=== PATIENT | female | born 1975 | race Caucasian/White ===

== ENCOUNTER 2018-07-22 13:46 | Inpatient (IN) | payer OTHER ==
--- NOTE | 2018-07-22 14:29 | PDOC ---
Attending Attestation - HPI HPI: 07/22/18 16:39 The patient is a 42 year old female with a significant past medical history of chronic back pain, seizures, multiple strokes, migraines who presents to the ER s/p fall two days ago. Patient states she slipped in her bathroom and sustained a head injury on the rim of the bathtub. Patient denies loss of consciousness. Patient is complaining of a headache localized on the right side and blurry vision on the right side. Patient reports seeing her neurologist, Dr. Rosas, who suggested she come to the ER for further evaluation. The patient denies chest pain, shortness of breath, and dizziness. Denies fever, chills, nausea, vomit, diarrhea, and constipation. Denies dysuria, frequency, urgency, and hematuria. Allergies: NKA Past surgical history: None reported. Social history: No reported alcohol, drug or cigarette use. Neurologist: Dr. Rosas <Oralia Johnson - Last Filed: 07/22/18 16:39> - Resident Resident Name: Kelechi Lane - ED Attending Attestation I have performed the following: I have examined & evaluated the patient, The case was reviewed & discussed with the resident, I agree w/resident's findings & plan, Exceptions are as noted - Physicial Exam PE: GENERAL: Awake, alert, and fully oriented, in no acute distress HEAD: No signs of trauma EYES: PERRLA, EOMI, sclera anicteric, conjunctiva clear ENT: Auricles normal inspection, hearing grossly normal, nares patent, oropharynx clear without exudates. Moist mucosa NECK: Normal ROM, supple, no lymphadenopathy, JVD, or masses LUNGS: Breath sounds equal, clear to auscultation bilaterally. No wheezes, and no crackles HEART: Regular rate and rhythm, normal S1 and S2, no murmurs, rubs or gallops ABDOMEN: Soft, nontender, normoactive bowel sounds. No guarding, no rebound. No masses EXTREMITIES: Normal range of motion, no edema. No clubbing or cyanosis. No cords, erythema, or tenderness NEUROLOGICAL: Cranial nerves II through XII grossly intact. Normal speech. Sensation intact. Strength 4/5 RLE. Remainder 5/5. SKIN: Warm, Dry, normal turgor, no rashes or lesions noted. - Medical Decision Making Pt with history multiple strokes presenting s/p fall with R sided weakness ( apparently has no residual weakness, so this appears to be new). CTH obtained, no acute findings. For admission in light of her prior complicated history. <Sugar Butler - Last Filed: 07/25/18 10:26>
[2018-07-22] MEDS ORDERED: PROMETHAZINE HCL 25 MG TABLET PO ONE (15:46)
[2018-07-22] MEDS ORDERED: ONDANSETRON 4 MG/2 ML VIAL IVPUSH ONE (15:48)
[2018-07-22] MEDS ORDERED: ACETAMINOPHEN/CAFFEINE/BUTALBITAL 1 TAB PO ONE (15:50)
[2018-07-22] MEDS ORDERED: ACETAMINOPHEN/CAFFEINE/BUTALBITAL 1 TAB ONE (15:56)
[2018-07-22] MEDS ORDERED: ONDANSETRON 4 MG/2 ML VIAL ONE (15:56)
[2018-07-22 16:10] LABS: BASO % 0.6 % (0-2.0); EOS % 2.6 % (0-4.5); HEMATOCRIT 34.5 % (32.4-45.2); LYMPH % 36.7 % (8-40); MCH 31.7 pg (25.7-33.7); MCHC 34.8 g/dl (32.0-36.0); MEAN CELL VOLUME 91.1 fl (80-96); MEAN PLT VOLUME 8.1 fl (7.5-11.1); MONO % 8.8 % (3.8-10.2); NEUT % 51.3 % (42.8-82.8); PLATELET COUNT 179 K/MM3 (134-434); RBC 3.79 M/mm3 (3.60-5.2); RDW 12.8 % (11.6-15.6); WHITE BLOOD COUNT 5.2 K/mm3 (4.0-10.0)
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
[2018-07-22] MEDS: clonazePAM 0.5 MG TABLET PO ONE ×2 (16:21→16:32)
[2018-07-22 16:36] LABS: ALBUMIN 3.4 g/dl (3.4-5.0); ANION GAP 9 MMOL/L (8-16); BILIRUBIN,TOTAL 0.5 mg/dL (0.2-1.0); BLOOD UREA NITROGEN 21 mg/dL (7-18); CALCIUM 8.6 mg/dL (8.5-10.1); CHLORIDE 108 mmol/L (98-107); CO2 25 mmol/L (21-32); CREATININE 0.9 mg/dL (0.55-1.02); GLUCOSE,RANDOM 73 mg/dL (74-106); POTASSIUM 3.8 mmol/L (3.5-5.1); SGOT/AST 24 U/L (15-37); SGPT/ALT 45 U/L (12-78); SODIUM 142 mmol/L (136-145); TOT PROT 6.9 g/dl (6.4-8.2)
[2018-07-22] MEDS ORDERED: SODIUM CHLORIDE 1,000 ML IV STA (16:36)
[2018-07-22 16:37] LABS: ALK PHOS 80 U/L (45-117)
--- NOTE | 2018-07-22 17:15 | PN ---
Physical Exam: SUBJECTIVE: Patient seen and examined OBJECTIVE: Vital Signs Period Temp Pulse Resp BP Sys/Lyman Pulse Ox Last 24 Hr 98 F 68-82 16-18 89-95/54-65 98-100 GENERAL: The patient is awake, alert, and fully oriented, in no acute distress. HEAD: Normal with no signs of trauma. EYES: PERRL, extraocular movements intact, sclera anicteric, conjunctiva clear. No ptosis. ENT: Ears normal, nares patent, oropharynx clear without exudates, moist mucous membranes. NECK: Trachea midline, full range of motion, supple. LUNGS: Breath sounds equal, clear to auscultation bilaterally, no wheezes, no crackles, no accessory muscle use. HEART: Regular rate and rhythm, S1, S2 without murmur, rub or gallop. ABDOMEN: Soft, nontender, nondistended, normoactive bowel sounds, no guarding, no rebound, no hepatosplenomegaly, no masses. EXTREMITIES: 2+ pulses, warm, well-perfused, no edema. NEUROLOGICAL: Cranial nerves II through XII grossly intact. Normal speech, gait not observed. PSYCH: Normal mood, normal affect. SKIN: Warm, dry, normal turgor, no rashes or lesions noted Laboratory Results - last 24 hr 07/22/18 07/22/18 15:49 15:49 WBC 5.2 RBC 3.79 Hgb 12.0 Hct 34.5 MCV 91.1 MCH 31.7 MCHC 34.8 RDW 12.8 Plt Count 179 MPV 8.1 Absolute Neuts (auto) 2.7 Neutrophils % 51.3 Lymphocytes % 36.7 Monocytes % 8.8 Eosinophils % 2.6 Basophils % 0.6 Nucleated RBC % 0 Sodium 142 Potassium 3.8 Chloride 108 H Carbon Dioxide 25 Anion Gap 9 BUN 21 H Creatinine 0.9 Creat Clearance w eGFR > 60 Random Glucose 73 L Calcium 8.6 Total Bilirubin 0.5 AST 24 ALT 45 Alkaline Phosphatase 80 Total Protein 6.9 Albumin 3.4 Active Medications Generic Name Dose Route Start Last Admin Trade Name Freq PRN Reason Stop Dose Admin Sodium Chloride 1,000 mls @ 1,000 mls/hr 07/22/18 16:36 07/22/18 16:40 Normal Saline - IV 07/22/18 17:35 1,000 mls/hr ASDIR STA Administration ASSESSMENT/PLAN:
[2018-07-22] MEDS ORDERED: LORazepam 2 MG/ML SDV VIAL ONE (19:54)
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
[2018-07-22] MEDS ORDERED: ATORVASTATIN CA 40 MG TABLET (FP) PO SCH (22:00)
[2018-07-22] MEDS ORDERED: clonazePAM 0.5 MG TABLET PO SCH (22:00)
[2018-07-22] MEDS ORDERED: TOPIRAMATE 100 MG TABLET PO SCH (22:00)
[2018-07-22] MEDS ORDERED: PATIENT'S OWN MEDICATION (NON-FORMULARY) (Clonazepam [Klonopin] 1 MG) PO SCH (22:00)
[2018-07-22] MEDS ORDERED: ATORVASTATIN CA 40 MG TABLET (FP) ONE (22:26)
[2018-07-22] MEDS ORDERED: clonazePAM 0.5 MG TABLET ONE (22:26)
[2018-07-22] MEDS ORDERED: TOPIRAMATE 25 MG TABLET (FP) ONE (22:27)
[2018-07-22] MEDS ORDERED: TOPIRAMATE 25 MG TABLET (FP) PO SCH (22:29)
[2018-07-22] MEDS: TOPIRAMATE 25 MG TABLET (FP) PO SCH (22:52)
[2018-07-23 00:41] LABS: URINE APPEARANCE CLOUDY; URINE BILIRUBIN NEGATIVE (<2.0 mg/dL); URINE COLOR LTYELLOW; URINE GLUCOSE (UA) NEGATIVE (NEGATIVE); URINE KETONE NEGATIVE (NEGATIVE); URINE LEUK ESTERASE NEGATIVE (NEGATIVE); URINE NITRITE NEGATIVE (NEGATIVE); URINE PROTEIN NEGATIVE (NEGATIVE); URINE UROBILINOGEN NEGATIVE mg/dL (0.2-1.0)
[2018-07-23 06:17] LABS: BASO % 0.4 % (0-2.0); EOS % 3.2 % (0-4.5); HEMATOCRIT 35.4 % (32.4-45.2); HEMOGLOBIN 12.1 GM/dL (10.7-15.3); LYMPH % 46.7 % (8-40); MCH 31.3 pg (25.7-33.7); MCHC 34.2 g/dl (32.0-36.0); MEAN CELL VOLUME 91.6 fl (80-96); MONO % 8.6 % (3.8-10.2); NEUT % 41.1 % (42.8-82.8); PLATELET COUNT 153 K/MM3 (134-434); RBC 3.86 M/mm3 (3.60-5.2); WHITE BLOOD COUNT 4.8 K/mm3 (4.0-10.0)
[2018-07-23 06:38] LABS: ALBUMIN 3.1 g/dl (3.4-5.0); ANION GAP 6 MMOL/L (8-16); BLOOD UREA NITROGEN 19 mg/dL (7-18); CHLORIDE 110 mmol/L (98-107); CO2 25 mmol/L (21-32); GLUCOSE,RANDOM 90 mg/dL (74-106); MAGNESIUM 1.9 mg/dL (1.8-2.4); POTASSIUM 3.9 mmol/L (3.5-5.1); SGOT/AST 28 U/L (15-37); SGPT/ALT 44 U/L (12-78); SODIUM 141 mmol/L (136-145)
[2018-07-23 06:42] LABS: ALK PHOS 75 U/L (45-117); BILIRUBIN,TOTAL 0.4 mg/dL (0.2-1.0); CHOLESTEROL 100 mg/dL (50-200); HDL CHOLESTEROL 36 mg/dL (40-60); TOT PROT 6.6 g/dl (6.4-8.2); TRIGLYCERIDES 101 mg/dL (35-160)
[2018-07-23 06:59] VITALS: BMI 27.6
[2018-07-23] MEDS ORDERED: LEVOTHYROXINE NA 50 MCG TABLET (FP) PO SCH ×2 (07:00→10:00)
[2018-07-23] MEDS ORDERED: PT OWN MED DRAWER 7, Y5N ONE ×2 (09:18→12:28)
[2018-07-23] MEDS ORDERED: clonazePAM 0.5 MG TABLET PO PRN (09:47)
[2018-07-23] MEDS ORDERED: BUPRENORPHINE/NALOXONE 8 MG/2 MG FILM PACKET SL SCH (10:00)
[2018-07-23] MEDS ORDERED: ASPIRIN 81 MG CHEWABLE TABLETS PO SCH (10:00)
[2018-07-23] MEDS ORDERED: PATIENT'S OWN MEDICATION (NON-FORMULARY) (Dextroamphetamine/Amphetamine [Adderall 10 Mg Ta PO SCH (10:00)
[2018-07-23] MEDS ORDERED: TOPIRAMATE 100 MG TABLET PO SCH (10:46)
[2018-07-23] MEDS ORDERED: ACETAMINOPHEN/CAFFEINE/BUTALBITAL 1 TAB PO ONE (11:47)
--- NOTE | 2018-07-23 11:47 | CON.NEURO ---
Consult - Past Medical History ...: No - Alcohol/Substance Use Hx Alcohol Use: No - Smoking History Smoking history: Never smoked Have you smoked in the past 12 months: No Home Medications - Allergies Allergies/Adverse Reactions: Allergies Allergy/AdvReac Type Severity Reaction Status Date / Time sulfamethoxazole Allergy Verified 07/22/18 13:50 [From ] trimethoprim [From ] Allergy Verified 07/22/18 13:50 avalox Allergy Uncoded 07/22/18 13:50 avlox Allergy Uncoded 07/22/18 13:50 - Home Medications Home Medications: Ambulatory Orders Dextroamphetamine/Amphetamine [Adderall 10 mg Tablet] 30 mg PO BID #10 tablet MDD 2 tabs 05/31/18 Topiramate [Topamax] 100 mg PO BID 5 Days #10 tablet 05/31/18 Aspirin [ASA -] 81 mg PO DAILY 07/22/18 Atorvastatin Ca [Lipitor] 40 mg PO HS 07/22/18 Buprenorphine HCl/Naloxone HCl [Suboxone 8 mg-2 mg Sl Tablets] 1 each SL DAILY 07/22/18 Clonazepam [Klonopin] 1 mg PO BID 07/22/18 Levothyroxine [Synthroid -] 50 mcg PO DAILY 07/22/18 Physical Exam-Neuro Vital Signs: Vital Signs Temperature 98 F 07/23/18 06:52 Pulse Rate 58 L 07/23/18 06:52 Respiratory Rate 18 07/23/18 06:52 Blood Pressure 90/60 07/23/18 06:52 O2 Sat by Pulse Oximetry (%) 98 07/23/18 06:52 Labs: CBC, BMP 07/23/18 06:05 07/23/18 06:05 Assessment/Plan cc Fall and hitting her head HPI 42 year old female history of anxiety, back pain , strokes, mgiraine and hypothyroidism. She is known to me as I saw her in office couple of time. She has beenon clonazepam, adderall . She is seeing psychiatrist and pain management. She has history of stroke and ? multiple stroke in past and complain of mild right sided weakness as baseline. Patient has two cystic lesion on left occipital area and right frontal area. Patient is planning to move back to [place]. She saw me yesterday and I advise her to come to ed , as she was complaining of headache and sleepiness. PAST MEDICAL HISTORY: anxiety, chronic back pain, seizures, strokes, migraines Social History: Smoking: denies Alcohol: denies Drugs: on suboxone, klonopin Allergies sulfamethoxazole [From ] Allergy (Verified 07/22/18 13:50) trimethoprim [From Julra] Allergy (Verified 07/22/18 13:50) avalox Allergy (Uncoded 07/22/18 13:50) avlox Allergy (Uncoded 07/22/18 13:50) HOME MEDICATIONS: Home Medications Medication Instructions Recorded Dextroamphetamine/Amphetamine 30 mg PO BID #10 tablet MDD 2 tabs 05/31/18 [Adderall 10 mg Tablet] Topiramate [Topamax] 100 mg PO BID 5 Days #10 tablet 05/31/18 Aspirin [ASA -] 81 mg PO DAILY 07/22/18 Atorvastatin Ca [Lipitor] 40 mg PO HS 07/22/18 Buprenorphine HCl/Naloxone HCl 1 each SL DAILY 07/22/18 [Suboxone 8 mg-2 mg Sl Tablets] Clonazepam [Klonopin] 1 mg PO HS 07/22/18 Levothyroxine [Synthroid -] 50 mcg PO DAILY 07/22/18 NEUROLOGICAL EXAMINATION Alert oriented x 3 speech is normal, there is right hemianopsia, no face asymmetry very minimial right sided ( hand smutter and right leg weakness) grade 5-/5 reflex are symmetrical sensation is normal ct reviewed and mri of brain showed left occpital cyst and right frontal lobe encephalomalacia , Assessment- Recent fall could be Mechanical fall vs medication induced ( as she is on clonazepam, suboxone, and adderall), there is no acute findigns on mri or ct head, cystic lesion could be due to old traumatic injury vs ? old stroke Plan- would like to obtain old records to compare as outpatient - continue same medication aspirni and statin - she is schedule for botox injection on wednesday, and she would like to keep that appt - Neurologically she is stable and can be discharged, -Patient can be seen with PT before she discharged Thanking you so much Rony Rosas MD
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
[2018-07-23] MEDS: TOPIRAMATE 25 MG TABLET (FP) PO SCH (13:06)
[2018-07-23 14:14] VITALS: BP 89/53; PULSE 66; TEMP 97.9
--- NOTE | 2018-07-26 17:19 | EKG ---
Test Reason : Blood Pressure : / mmHG Vent. Rate : 060 BPM Atrial Rate : 060 BPM P-R Int : 128 ms QRS Dur : 074 ms QT Int : 424 ms P-R-T Axes : 036 029 014 degrees QTc Int : 424 ms NORMAL SINUS RHYTHM NONSPECIFIC T WAVE ABNORMALITY ABNORMAL ECG NO PREVIOUS ECGS AVAILABLE Confirmed by MD ARAMIS, RICCARDO ([id number]) on 07/26/2018 5:18:59 PM Referred By: Confirmed By:RICCARDO SELF MD
== END 2018-07-23 17:47 | disposition home or self-care (01) | DRG 914 ==
LOC: JER 13:46 → JERBED 16:30 → J4W 07-23 07:41
PROVIDERS: ADMIT Internal Medicine; ATTEND Internal Medicine
DX: S09.90XA Unspecified injury of head, initial encounter (principal); I69.351 Hemiplegia and hemiparesis following cerebral infarction affecting right dominant side; G93.89 Other specified disorders of brain; W19.XXXA Unspecified fall, initial encounter; Y93.89 Activity, other specified; Y92.89 Other specified places as the place of occurrence of the external cause; Y99.8 Other external cause status; E03.9 Hypothyroidism, unspecified
CPT/HCPCS: 36415; 70450-TC; 70551-TC; 80053; 80061; 81003; 83036; 83721; 83735; 84484; 85025; 93005; 93010; 93880-TC; 99285-25; J7030

== ENCOUNTER 2019-03-23 09:41 | Inpatient (IN) | payer BC ==
[2019-03-23 10:17] VITALS: BMI 26.2
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
[2019-03-23] MEDS ORDERED: IBUPROFEN 400 MG TABLET (FP) PO PRN (11:30)
[2019-03-23] MEDS ORDERED: BISMUTH SUBSALICYLATE 262 MG/15 ML BTL PO PRN (11:30)
[2019-03-23] MEDS ORDERED: ACETAMINOPHEN 325 MG TABLET (FP) PO PRN ×2 (11:30)
[2019-03-23] MEDS ORDERED: MAG HYDROX/AL HYDROX/SIMETH 30 ML UNIT-DOSE CUP PO PRN (11:30)
[2019-03-23] MEDS ORDERED: MAGNESIUM HYDROX 2400MG/30ML ORAL SUSPENSION 30 ML CUP PO PRN (11:30)
[2019-03-23] MEDS ORDERED: MENTHOL/PHENOL 1 EACH UD MM PRN (11:30)
[2019-03-23] MEDS ORDERED: MAGNESIUM CITRATE 300 ML BOTTLE PO PRN (11:30)
[2019-03-23] MEDS ORDERED: METHADONE HCL 10 MG TABLET (FOR DETOX USE ONLY) PO ONE (12:05)
[2019-03-23] MEDS: clonazePAM 0.5 MG TABLET PO PRN ×2 (12:19→17:50)
[2019-03-23] MEDS: METHOCARBAMOL 500 MG TABLET PO PRN (17:50)
[2019-03-23] MEDS: hydrOXYzine PAMOATE 25 MG CAPSULE (FP) PO PRN (17:51)
[2019-03-23] MEDS: TOPIRAMATE 100 MG TABLET PO SCH (22:31)
[2019-03-23] MEDS: THIAMINE HCL 100 MG TABLET (FP) PO SCH (22:31)
[2019-03-23] MEDS: ATORVASTATIN CA 40 MG TABLET (FP) PO SCH (22:31)
[2019-03-23] MEDS: MELATONIN 5 MG TABLETS PO PRN (22:32)
[2019-03-24] MEDS: ONDANSETRON *ODT* 4 MG TABLET SL PRN ×4 (02:56→21:43)
[2019-03-24] MEDS: hydrOXYzine PAMOATE 25 MG CAPSULE (FP) PO PRN ×4 (02:57→21:44)
[2019-03-24] MEDS: clonazePAM 0.5 MG TABLET PO PRN ×3 (05:32→21:43)
[2019-03-24] MEDS: TRIMETHOBENZAMIDE HCL 200MG/2ML INJ IM PRN ×3 (07:34→23:02)
[2019-03-24] MEDS ORDERED: METHADONE DETOX 10 MG/1 ML [20ML VIAL] IM ONE (09:19)
[2019-03-24] MEDS ORDERED: METHADONE HCL 10 MG TABLET (FOR DETOX USE ONLY) PO ONE (10:00)
[2019-03-24] MEDS ORDERED: METHADONE (DETOX) 20 MG, METHADONE (DETOX) 5 MG PO ONE (10:00)
[2019-03-24 10:08] LABS: HEMATOCRIT 47.4 % (32.4-45.2); HEMOGLOBIN 15.2 GM/dL (10.7-15.3); MCHC 32.1 g/dl (32.0-36.0); MEAN CELL VOLUME 90.5 fl (80-96); MEAN PLT VOLUME 8.8 fl (7.5-11.1); PLATELET COUNT 315 K/MM3 (134-434); RBC 5.24 M/mm3 (3.60-5.2); RDW 14.3 % (11.6-15.6); WHITE BLOOD COUNT 10.3 K/mm3 (4.0-10.0)
[2019-03-24 10:12] LABS: BILIRUBIN,TOTAL 1.2 mg/dL (0.2-1); CREATININE 0.9 mg/dL (0.55-1.3); POTASSIUM 3.7 mmol/L (3.5-5.1); TOT PROT 8.3 g/dl (6.4-8.2)
[2019-03-24] MEDS: cloNIDine HCL 0.1 MG TABLET PO PRN ×2 (10:46→19:15)
[2019-03-24] MEDS: ASPIRIN 81 MG CHEWABLE TABLETS PO SCH (10:46)
[2019-03-24] MEDS: TOPIRAMATE 100 MG TABLET PO SCH ×2 (10:46→21:43)
[2019-03-24] MEDS: PRENATAL VITAMINS W/ FOLIC ACID TABLET (FP) PO SCH (10:48)
[2019-03-24] MEDS: DICYCLOMINE HCL 10 MG CAPSULE PO PRN ×2 (12:21→19:15)
--- NOTE | 2019-03-24 17:01 | PN ---
BHS COWS - Scale Resting Pulse: 0= [place] 80 or Below Sweatin= Chills/Flushing Restless Observation: 1= Difficult to Sit Still Pupil Size: 0= Normal to Room Light Bone or Joint Aches: 1= Mild Discomfort Runny Nose/ Eye Tearin= Nasal Congestion GI Upset > 30mins: 5=Frequent Vomit/Diarrhea Tremor Observation of Outstretched Hands: 2= Slight Tremor Visible Yawning Observation: 1= 1-2x During Session Anxiety or Irritability: 4=Extreme Anxiety Goose Flesh Skin: 0=Smooth Skin COWS Score: 16 BHS Progress Note (SOAP) Subjective: Vomiting, Frequent, Stomach Cramping, Anxious, Tremors, Body Aches. Objective: PATIENT A & O X 3, OBSERVED AMBULATING ON UNIT UNASSISTED. 03/24/19 16:56 Vital Signs Temperature 97.1 F L 03/24/19 14:12 Pulse Rate 55 L 03/24/19 14:12 Respiratory Rate 18 03/24/19 14:12 Blood Pressure 148/80 03/24/19 14:12 O2 Sat by Pulse Oximetry (%) Laboratory Tests 03/23/19 03/24/19 03/24/19 10:39 07:00 07:00 WBC 10.3 H RBC 5.24 H Hgb 15.2 Hct 47.4 H D MCV 90.5 MCH 29.0 MCHC 32.1 RDW 14.3 D Plt Count 315 MPV 8.8 Sodium 138 Potassium 3.7 Chloride 104 Carbon Dioxide 24 Anion Gap 10 BUN 10 Creatinine 0.9 Est GFR (CKD-EPI)AfAm 90.76 Est GFR (CKD-EPI)NonAf 78.31 Random Glucose 106 Calcium 10.0 Total Bilirubin 1.2 H AST 12 L ALT 18 Alkaline Phosphatase 99 Total Protein 8.3 H Albumin 4.0 POC Urine HCG, Qual Negative LABS NOTED. RPR RESULT PENDING. 03/24/19 16:58 Assessment: 03/24/19 16:57 WITHDRAWAL SYMPTOMS. LEUKOCYTOSIS. 03/24/19 17:00 Plan: CONTINUE DETOX. INCREASE DAILY PO FLUID / WATER INTAKE. PRN BENTYL PO FOR ABDOMINAL CRAMPING. PRN ZOFRAN SL / TIGAN IM FOR NAUSEA / VOMITING. IM FORM OF TODAY'S DETOX DOSE OF METHADONE ORDERED DUE TO FREQUENT VOMITING. REPEAT CBC TOMORROW AM FOR ELEVATED ADMISSION WBC LEVEL.
[2019-03-24] MEDS: METHOCARBAMOL 500 MG TABLET PO PRN (19:20)
[2019-03-24] MEDS: THIAMINE HCL 100 MG TABLET (FP) PO SCH (21:43)
[2019-03-24] MEDS: ATORVASTATIN CA 40 MG TABLET (FP) PO SCH (21:44)
[2019-03-24] MEDS: MELATONIN 5 MG TABLETS PO PRN (21:44)
[2019-03-25] MEDS: DICYCLOMINE HCL 10 MG CAPSULE PO PRN ×2 (01:36→18:01)
[2019-03-25] MEDS: cloNIDine HCL 0.1 MG TABLET PO PRN ×2 (01:36→18:01)
[2019-03-25] MEDS: clonazePAM 0.5 MG TABLET PO PRN ×3 (05:07→17:23)
[2019-03-25] MEDS: ONDANSETRON *ODT* 4 MG TABLET SL PRN ×3 (05:07→22:14)
[2019-03-25] MEDS ORDERED: METHADONE HCL 10 MG TABLET (FOR DETOX USE ONLY) PO ONE (10:00)
[2019-03-25] MEDS: ASPIRIN 81 MG CHEWABLE TABLETS PO SCH (10:24)
[2019-03-25] MEDS: TOPIRAMATE 100 MG TABLET PO SCH ×2 (10:24→22:15)
[2019-03-25] MEDS: PRENATAL VITAMINS W/ FOLIC ACID TABLET (FP) PO SCH (10:24)
[2019-03-25 11:44] LABS: BASO % 0.2 % (0-2.0); HEMATOCRIT 44.3 % (32.4-45.2); HEMOGLOBIN 14.7 GM/dL (10.7-15.3); LYMPH % 24.2 % (8-40); MCH 29.2 pg (25.7-33.7); MCHC 33.1 g/dl (32.0-36.0); MEAN CELL VOLUME 88.3 fl (80-96); MEAN PLT VOLUME 8.6 fl (7.5-11.1); MONO % 8.7 % (3.8-10.2); NEUT % 66.9 % (42.8-82.8); PLATELET COUNT 315 K/MM3 (134-434); RBC 5.01 M/mm3 (3.60-5.2); RDW 14.6 % (11.6-15.6); WHITE BLOOD COUNT 11.2 K/mm3 (4.0-10.0)
[2019-03-25] MEDS: hydrOXYzine PAMOATE 25 MG CAPSULE (FP) PO PRN ×2 (17:23→22:14)
--- NOTE | 2019-03-25 18:18 | PN ---
BHS COWS - Scale Resting Pulse: 1= [place] 81-100 Sweatin= Chills/Flushing Restless Observation: 1= Difficult to Sit Still Pupil Size: 0= Normal to Room Light Bone or Joint Aches: 2= Severe Diffuse Aches Runny Nose/ Eye Tearin= None GI Upset > 30mins: 2= Nausea/Diarrhea Tremor Observation of Outstretched Hands: 0= None Yawning Observation: 1= 1-2x During Session Anxiety or Irritability: 4=Extreme Anxiety Goose Flesh Skin: 3=Piloerection COWS Score: 15 BHS Progress Note (SOAP) Subjective: Nausea, Hot / Cold Sensations, Body Aches, Anxious (Severe), Restless. Objective: PATIENT A & O X 3, OBSERVED AMBULATING ON UNIT UNASSISTED. IN NO ACUTE DISTRESS. PATIENT DENIES ANY UNUSUAL URINARY COMPLAINTS (BURNING, PAIN, FREQUENCY, URGENCY , HESITANCY). PATIENT DENIES SOB AND CHEST PAIN. TRACK TRINIDAD NOTED ON LEFT FOREARM. NO SIGN OF INFECTION NOTED AT SITE. 03/25/19 18:40 Vital Signs Temperature 97.5 F L 03/25/19 16:09 Pulse Rate 82 03/25/19 16:09 Respiratory Rate 18 03/25/19 16:09 Blood Pressure 89/65 L 03/25/19 16:09 O2 Sat by Pulse Oximetry (%) Laboratory Tests 03/23/19 03/24/19 03/24/19 10:39 07:00 07:00 WBC 10.3 H RBC 5.24 H Hgb 15.2 Hct 47.4 H D MCV 90.5 MCH 29.0 MCHC 32.1 RDW 14.3 D Plt Count 315 MPV 8.8 Absolute Neuts (auto) Neutrophils % Lymphocytes % Monocytes % Eosinophils % Basophils % Nucleated RBC % Sodium 138 Potassium 3.7 Chloride 104 Carbon Dioxide 24 Anion Gap 10 BUN 10 Creatinine 0.9 Est GFR (CKD-EPI)AfAm 90.76 Est GFR (CKD-EPI)NonAf 78.31 Random Glucose 106 Calcium 10.0 Total Bilirubin 1.2 H AST 12 L ALT 18 Alkaline Phosphatase 99 Total Protein 8.3 H Albumin 4.0 POC Urine HCG, Qual Negative RPR Titer 03/24/19 03/25/19 07:00 08:00 WBC 11.2 H RBC 5.01 Hgb 14.7 Hct 44.3 MCV 88.3 MCH 29.2 MCHC 33.1 RDW 14.6 Plt Count 315 MPV 8.6 Absolute Neuts (auto) 7.5 Neutrophils % 66.9 D Lymphocytes % 24.2 D Monocytes % 8.7 Eosinophils % 0.0 D Basophils % 0.2 Nucleated RBC % 0 Sodium Potassium Chloride Carbon Dioxide Anion Gap BUN Creatinine Est GFR (CKD-EPI)AfAm Est GFR (CKD-EPI)NonAf Random Glucose Calcium Total Bilirubin AST ALT Alkaline Phosphatase Total Protein Albumin POC Urine HCG, Qual RPR Titer Nonreactive LABS NOTED. RESULTS OF REPEAT CBC (WBC) LEVEL NOTED. WBC LEVEL NOTED TO BE SLIGHTLY HIGHER ON REPEAT ASSESSMENT THAN ON ADMISSION CBC. 03/25/19 18:44 Assessment: 03/25/19 18:43 WITHDRAWAL SYMPTOMS. LEUKOCYTOSIS. Plan: CONTINUE DETOX. INCREASE DAILY PO FLUID / WATER INTAKE. REPEAT CBC ORDERED FOR TOMORROW AM. UA ORDERED PRECAUTION.
[2019-03-25] MEDS: ATORVASTATIN CA 40 MG TABLET (FP) PO SCH (22:14)
[2019-03-25] MEDS: THIAMINE HCL 100 MG TABLET (FP) PO SCH (22:15)
[2019-03-25] MEDS: MELATONIN 5 MG TABLETS PO PRN (22:15)
[2019-03-26] MEDS: clonazePAM 0.5 MG TABLET PO PRN ×5 (00:47→22:12)
[2019-03-26] MEDS: TRIMETHOBENZAMIDE HCL 200MG/2ML INJ IM PRN (01:56)
[2019-03-26] MEDS: METHOCARBAMOL 500 MG TABLET PO PRN ×2 (06:49→22:14)
[2019-03-26] MEDS ORDERED: METHADONE HCL 10 MG TABLET (FOR DETOX USE ONLY) PO ONE (10:00)
[2019-03-26] MEDS: ASPIRIN 81 MG CHEWABLE TABLETS PO SCH (10:23)
[2019-03-26] MEDS: PRENATAL VITAMINS W/ FOLIC ACID TABLET (FP) PO SCH (10:23)
[2019-03-26] MEDS: TOPIRAMATE 100 MG TABLET PO SCH ×2 (10:23→22:13)
[2019-03-26] MEDS ORDERED: COLLOIDAL OATMEAL 1 BAR EACH TP PRN (10:27)
[2019-03-26] MEDS: NICOTINE 21 MG/24 HOURS TOPICAL PATCH TD SCH (11:48)
[2019-03-26] MEDS: NICOTINE POLACRILEX 4 MG GUM BUC PRN ×2 (11:48→13:58)
[2019-03-26] MEDS: ONDANSETRON *ODT* 4 MG TABLET SL PRN (14:04)
--- NOTE | 2019-03-26 15:55 | PN ---
BHS COWS - Scale Resting Pulse: 0= [place] 80 or Below Sweatin= Chills/Flushing Restless Observation: 1= Difficult to Sit Still Pupil Size: 0= Normal to Room Light Bone or Joint Aches: 1= Mild Discomfort Runny Nose/ Eye Tearin= Nasal Congestion GI Upset > 30mins: 1= Stomach Cramp Tremor Observation of Outstretched Hands: 2= Slight Tremor Visible Yawning Observation: 2= >3x During Session Anxiety or Irritability: 1=Feels Anxious/Irritable Goose Flesh Skin: 0=Smooth Skin COWS Score: 10 BHS Progress Note (SOAP) Subjective: feeling better today wants soap for shower and nicotine patch for cigarettes smoking replacement Objective: 03/26/19 15:54 Vital Signs Temperature 96.8 F L 03/26/19 15:03 Pulse Rate 80 03/26/19 15:03 Respiratory Rate 18 03/26/19 15:03 Blood Pressure 90/63 03/26/19 15:03 O2 Sat by Pulse Oximetry (%) Laboratory Last Values WBC 11.2 K/mm3 (4.0-10.0) H 03/25/19 08:00 RBC 5.01 M/mm3 (3.60-5.2) 03/25/19 08:00 Hgb 14.7 GM/dL (10.7-15.3) 03/25/19 08:00 Hct 44.3 % (32.4-45.2) 03/25/19 08:00 MCV 88.3 fl (80-96) 03/25/19 08:00 MCH 29.2 pg (25.7-33.7) 03/25/19 08:00 MCHC 33.1 g/dl (32.0-36.0) 03/25/19 08:00 RDW 14.6 % (11.6-15.6) 03/25/19 08:00 Plt Count 315 K/MM3 (134-434) 03/25/19 08:00 MPV 8.6 fl (7.5-11.1) 03/25/19 08:00 Absolute Neuts (auto) 7.5 K/mm3 (1.5-8.0) 03/25/19 08:00 Neutrophils % 66.9 % (42.8-82.8) D 03/25/19 08:00 Lymphocytes % 24.2 % (8-40) D 03/25/19 08:00 Monocytes % 8.7 % (3.8-10.2) 03/25/19 08:00 Eosinophils % 0.0 % (0-4.5) D 03/25/19 08:00 Basophils % 0.2 % (0-2.0) 03/25/19 08:00 Nucleated RBC % 0 % (0-0) 03/25/19 08:00 Sodium 138 mmol/L (136-145) 03/24/19 07:00 Potassium 3.7 mmol/L (3.5-5.1) 03/24/19 07:00 Chloride 104 mmol/L (98-107) 03/24/19 07:00 Carbon Dioxide 24 mmol/L (21-32) 03/24/19 07:00 Anion Gap 10 MMOL/L (8-16) 03/24/19 07:00 BUN 10 mg/dL (7-18) 03/24/19 07:00 Creatinine 0.9 mg/dL (0.55-1.3) 03/24/19 07:00 Est GFR (CKD-EPI)AfAm 90.76 03/24/19 07:00 Est GFR (CKD-EPI)NonAf 78.31 03/24/19 07:00 Random Glucose 106 mg/dL (74-106) 03/24/19 07:00 Calcium 10.0 mg/dL (8.5-10.1) 03/24/19 07:00 Total Bilirubin 1.2 mg/dL (0.2-1) H 03/24/19 07:00 AST 12 U/L (15-37) L 03/24/19 07:00 ALT 18 U/L (13-61) 03/24/19 07:00 Alkaline Phosphatase 99 U/L (45-117) 03/24/19 07:00 Total Protein 8.3 g/dl (6.4-8.2) H 03/24/19 07:00 Albumin 4.0 g/dl (3.4-5.0) 03/24/19 07:00 POC Urine HCG, Qual Negative 03/23/19 10:39 RPR Titer Nonreactive (NONREACTIVE) 03/24/19 07:00 lab noted Assessment: 03/26/19 15:55 withdrawal sx Plan: continue detox
[2019-03-26] MEDS: hydrOXYzine PAMOATE 25 MG CAPSULE (FP) PO PRN (17:55)
[2019-03-26] MEDS: ATORVASTATIN CA 40 MG TABLET (FP) PO SCH (22:12)
[2019-03-26] MEDS: THIAMINE HCL 100 MG TABLET (FP) PO SCH (22:12)
[2019-03-26] MEDS: MELATONIN 5 MG TABLETS PO PRN (22:13)
[2019-03-26 23:56] LABS: BASO % 0.5 % (0-2.0); EOS % 0.3 % (0-4.5); HEMATOCRIT 49.1 % (32.4-45.2); HEMOGLOBIN 15.9 GM/dL (10.7-15.3); LYMPH % 43.9 % (8-40); MCH 28.7 pg (25.7-33.7); MCHC 32.4 g/dl (32.0-36.0); MEAN CELL VOLUME 88.6 fl (80-96); MEAN PLT VOLUME 8.8 fl (7.5-11.1); MONO % 10.3 % (3.8-10.2); PLATELET COUNT 288 K/MM3 (134-434); RBC 5.54 M/mm3 (3.60-5.2); RDW 14.3 % (11.6-15.6); WHITE BLOOD COUNT 11.4 K/mm3 (4.0-10.0)
[2019-03-27] MEDS: ONDANSETRON *ODT* 4 MG TABLET SL PRN (01:01)
[2019-03-27] MEDS: hydrOXYzine PAMOATE 25 MG CAPSULE (FP) PO PRN (02:20)
[2019-03-27] MEDS: DICYCLOMINE HCL 10 MG CAPSULE PO PRN (02:20)
[2019-03-27] MEDS ORDERED: METHADONE HCL 5 MG TABLET (FOR DETOX USE ONLY) PO ONE (06:00)
[2019-03-27] MEDS: clonazePAM 0.5 MG TABLET PO PRN (06:01)
[2019-03-27 09:17] VITALS: BP 93/75; PULSE 116; TEMP 97.1
[2019-03-27] MEDS: NICOTINE 21 MG/24 HOURS TOPICAL PATCH TD SCH (09:57)
[2019-03-27] MEDS: PRENATAL VITAMINS W/ FOLIC ACID TABLET (FP) PO SCH (09:58)
[2019-03-27] MEDS: ASPIRIN 81 MG CHEWABLE TABLETS PO SCH (09:58)
[2019-03-27] MEDS: TOPIRAMATE 100 MG TABLET PO SCH (09:58)
--- NOTE | 2019-03-27 14:38 | DS ---
[facility] Detox Discharge Summary Admission Date: 03/23/19 Discharge Date: 03/27/19 - History Present History: Opioid Dependence Additional Comments: 43 years old female admitted on 03/23/19 for opiate withdrawal stabilization completed detox regimen patient stated that her son's is today and would like to attend the patient is alert no acute distress denies suicidal ideation discuss medication assisted maintenance treatment program Pertinent Past History: bring in medication list and lab report to follow up appointment - Physical Exam Results Vital Signs: Vital Signs Temperature 97.1 F L 03/27/19 09:10 Pulse Rate 116 H 03/27/19 09:10 Respiratory Rate 20 03/27/19 09:10 Blood Pressure 93/75 03/27/19 09:10 O2 Sat by Pulse Oximetry (%) Pertinent Admission Physical Exam Findings: opiate withdrawal sx Laboratory Last Values WBC 11.4 K/mm3 (4.0-10.0) H 03/26/19 23:50 RBC 5.54 M/mm3 (3.60-5.2) H 03/26/19 23:50 Hgb 15.9 GM/dL (10.7-15.3) H 03/26/19 23:50 Hct 49.1 % (32.4-45.2) H 03/26/19 23:50 MCV 88.6 fl (80-96) 03/26/19 23:50 MCH 28.7 pg (25.7-33.7) 03/26/19 23:50 MCHC 32.4 g/dl (32.0-36.0) 03/26/19 23:50 RDW 14.3 % (11.6-15.6) 03/26/19 23:50 Plt Count 288 K/MM3 (134-434) 03/26/19 23:50 MPV 8.8 fl (7.5-11.1) 03/26/19 23:50 Absolute Neuts (auto) 5.1 K/mm3 (1.5-8.0) 03/26/19 23:50 Neutrophils % 45.0 % (42.8-82.8) D 03/26/19 23:50 Lymphocytes % 43.9 % (8-40) H D 03/26/19 23:50 Monocytes % 10.3 % (3.8-10.2) H 03/26/19 23:50 Eosinophils % 0.3 % (0-4.5) D 03/26/19 23:50 Basophils % 0.5 % (0-2.0) 03/26/19 23:50 Nucleated RBC % 0 % (0-0) 03/26/19 23:50 Sodium 138 mmol/L (136-145) 03/24/19 07:00 Potassium 3.7 mmol/L (3.5-5.1) 03/24/19 07:00 Chloride 104 mmol/L (98-107) 03/24/19 07:00 Carbon Dioxide 24 mmol/L (21-32) 03/24/19 07:00 Anion Gap 10 MMOL/L (8-16) 03/24/19 07:00 BUN 10 mg/dL (7-18) 03/24/19 07:00 Creatinine 0.9 mg/dL (0.55-1.3) 03/24/19 07:00 Est GFR (CKD-EPI)AfAm 90.76 03/24/19 07:00 Est GFR (CKD-EPI)NonAf 78.31 03/24/19 07:00 Random Glucose 106 mg/dL (74-106) 03/24/19 07:00 Calcium 10.0 mg/dL (8.5-10.1) 03/24/19 07:00 Total Bilirubin 1.2 mg/dL (0.2-1) H 03/24/19 07:00 AST 12 U/L (15-37) L 03/24/19 07:00 ALT 18 U/L (13-61) 03/24/19 07:00 Alkaline Phosphatase 99 U/L (45-117) 03/24/19 07:00 Total Protein 8.3 g/dl (6.4-8.2) H 03/24/19 07:00 Albumin 4.0 g/dl (3.4-5.0) 03/24/19 07:00 POC Urine HCG, Qual Negative 03/23/19 10:39 RPR Titer Nonreactive (NONREACTIVE) 03/24/19 07:00 lab noted - Treatment Hospital Course: Detox Protocol Followed, Detoxed Safely, Responded well, Discharged Condition Good, Rehab Referral Accepted Patient has Accepted a Rehab Referral to: [facility] - Medication Discharge Medications: Ambulatory Orders Dextroamphetamine/Amphetamine [Adderall 10 mg Tablet] 30 mg PO BID #10 tablet MDD 2 tabs 05/31/18 Topiramate [Topamax] 100 mg PO BID 5 Days #10 tablet 05/31/18 Aspirin [ASA -] 81 mg PO DAILY 07/22/18 Promethazine HCl [Phenergan -] 25 mg PO TID PRN 03/23/19 Atorvastatin Ca [Lipitor] 40 mg PO HS #30 tablet 03/26/19 Levothyroxine [Synthroid -] 50 mcg PO DAILY #30 tablet 03/26/19 - Diagnosis (1) Uncomplicated opioid dependence Status: Acute (2) Hypothyroid Status: Chronic Qualifiers: Hypothyroidism type: unspecified Qualified Code(s): E03.9 - Hypothyroidism , unspecified (3) Hyperlipidemia Status: Chronic Qualifiers: Hyperlipidemia type: moderate mixed hyperlipidemia not requiring statin therapy Qualified Code(s): E78.2 - Mixed hyperlipidemia - AMA Did Patient Leave Against Medical Advice: No
== END 2019-03-27 10:20 | disposition home or self-care (01) | DRG 897 ==
LOC: YASAS 09:41 → Y3N 11:37
PROVIDERS: ADMIT Surgery; ATTEND Surgery
PROC: HZ2ZZZZ Detoxification Services for Substance Abuse Treatment (ICD-10-PCS; principal; 2019-03-23)
DX: F11.23 Opioid dependence with withdrawal (principal); E03.9 Hypothyroidism, unspecified; E78.2 Mixed hyperlipidemia; D72.829 Elevated white blood cell count, unspecified; Z88.2 Allergy status to sulfonamides; Z88.8 Allergy status to other drugs, medicaments and biological substances; Z59.0 Homelessness
CPT/HCPCS: 36415; 80053; 81025; 85025; 85027; 86593; J0735; Q0162